=== PATIENT | male | born 1950 | race Caucasian/White ===

== ENCOUNTER → 2016-09-04 | Outpatient (CLI) | payer MEDICARE, OTHER ==
--- NOTE | ~2016-09-04 | XA30 ---
[facility] A Service of [facility] & [facility] RADIOLOGY TEXT RESULTS PATIENT: MARI VELARDE LOCATION: [facility] : 52 UNIT #: [id number] AGE: [address]: Danny Morillo MD SEX: M ORDER DR: [id number] [facility] [address] [place], [place] [address] [id number] O MR#: [id number] Acc #: [id number] NAME: MARI VELARDE : 1950 SEX: M STUDY DATE/TIME: 09/04/2016 12:16 UNIT: [facility] ROOM: STUDY DESCRIPTION: XA Arthrocentesis Major Joint Attending Physician: Danny Morillo M.D. Ordering Physician: Danny Morillo M.D. Primary Care Physician: Generic Doctor Not In System MEDICAL IMAGING REPORT This report is preliminary unless electronic signature is present EXAM Hip injection under fluoroscopy dated studies 09/05 HISTORY Right recurrent right hip pain. Procedure attendant risks and options were discussed the patient who understands and wishes to proceed. Patient was placed in supine position in the angio suite and the skin over the right hip was cleansed with chlorhexidine solution and sterilely draped. Utilizing fluoroscopic guidance and maximal sterile barrier technique according to the procedure guidelines a 22-gauge spine was inserted in the joint and confirmed with 1 mL of contrast media. A total of 8 mL lidocaine was utilized for infiltration and initial injection into the joint. 4 mL of bupivacaine and 80 mg of Depo Medrol were subsequently injected. A single spot radiographs was obtained documenting placement. Total exposure estimated at 20 mGy/cm air kerma standard. Prior to the procedure, the patient pain level of 6. Postprocedure pain level was 0. CONCLUSION Successful hip injection under fluoroscopy. 1. Dictated by... Killian Trevino M.D. THIS IS AN ELECTRONICALLY VERIFIED REPORT Killian Trevino M.D. at 09/04/2016 5:00 PM PIETRO/chey TD: 09/04/2016 14:15 STS. [facility] A Service of [facility] & [facility] RADIOLOGY TEXT RESULTS PATIENT: MARI VELARDE LOCATION: [facility] #: [id number] : 52 UNIT #: [id number] AGE: [address]: Danny Morillo MD SEX: M ORDER DR: JOB #: [id number] MEDICAL IMAGING REPORT Page 1 of 1 COPY
== END | disposition home or self-care (01) ==
LOC: CIVR 12:05
PROC: 3E0U33Z Introduction of Anti-inflammatory into Joints, Percutaneous Approach (ICD-10-PCS; principal; 2016-09-04)
PROC: 3E0U3BZ Introduction of Anesthetic Agent into Joints, Percutaneous Approach (ICD-10-PCS; 2016-09-04)
DX: M16.11 Unilateral primary osteoarthritis, right hip (principal)
CPT/HCPCS: 77002; J1030; Q9966

== ENCOUNTER → 2016-12-04 | Outpatient (CLI) | payer MEDICARE, OTHER ==
--- NOTE | ~2016-12-04 | XA30 ---
[facility] A Service of [facility] & [facility] RADIOLOGY TEXT RESULTS PATIENT: MARI VELARDE LOCATION: [facility] : 52 UNIT #: [id number] AGE: [address]: Danny Morillo MD SEX: M ORDER DR: [id number] [facility] [address] [place], [place] [address] [id number] O MR#: [id number] Acc #: [id number] NAME: MARI VELARDE : 1950 SEX: M STUDY DATE/TIME: 12/04/2016 9:16 UNIT: [facility] ROOM: STUDY DESCRIPTION: XA Arthrocentesis Major Joint Attending Physician: Danny Morillo M.D. Ordering Physician: Danny Morillo M.D. Primary Care Physician: Generic Doctor Not In System MEDICAL IMAGING REPORT This report is preliminary unless electronic signature is present EXAM Fluoroscopically guided right hip injection HISTORY Right hip pain. The patient's most recent right hip injection was on September 04, 2016. PROCEDURE The risks, benefits, and alternatives to the procedure were explained to the patient and signed, informed consent was obtained. The patient was placed supine on the angiographic table and was prepped and draped in the usual sterile fashion. A time-out was performed as per protocol. Skin and subcutaneous tissues were anesthetized with buffered lidocaine and a 22-gauge spinal needle was advanced into the joint space. Contrast was injected which confirmed location within the joint space using a combination of Lidocaine, bupivacaine and Depo-Medrol. The needle was then removed and manual pressure was applied until hemostasis was obtained. Total fluoroscopy time was 0.3 minutes and a single fluoroscopic image was obtained. IMPRESSION Technically successful fluoroscopically guided right hip injected as noted above. Fluoroscopy was used during the procedure and permanent images were saved. Dictated by... Chen Riggs M.D. THIS IS AN ELECTRONICALLY VERIFIED REPORT Chen Riggs M.D. at 12/05/2016 5:13 PM SALVADOR/nighat STS. [facility] A Service of [facility] & [facility] RADIOLOGY TEXT RESULTS PATIENT: MARI VELARDE LOCATION: [facility] #: [id number] : 52 UNIT #: [id number] AGE: [address]: Danny Morillo MD SEX: M ORDER DR: TD: 12/05/2016 09:26 JOB #: [id number] MEDICAL IMAGING REPORT Page 1 of 1 COPY
== END | disposition home or self-care (01) ==
LOC: CIVR 09:00
DX: M16.11 Unilateral primary osteoarthritis, right hip (principal)
CPT/HCPCS: 77002; J1030; Q9966